=== PATIENT | male | born 1965 | race Caucasian/White ===

== ENCOUNTER 2020-03-02 15:45 | Inpatient (IN) | payer OTHER ==
[~2020-03-02] VITALS: Ht 185 cm; Wt 82.6 kg
[2020-03-02 15:47] VITALS: BP 137/95
[2020-03-02] MEDS ORDERED: TYLENOL325 MG PO (15:56)
[2020-03-02] MEDS ORDERED: IBU800 MG PO (15:57)
[2020-03-02 16:36] LABS: URINE BILIRUBIN NEGATIVE (Negative); URINE BLOOD NEGATIVE (Negative); URINE CLARITY CLEAR; URINE COLOR YELLOW; URINE GLUCOSE-RANDOM* NEGATIVE (Negative); URINE KETONES TRACE (Negative); URINE LEUKOCYTES-REFLEX NEGATIVE (Negative); URINE NITRITE-REFLEX NEGATIVE (Negative); URINE PROTEIN (DIPSTICK) NEGATIVE (Negative); URINE UROBILINOGEN 0.2 E.U./dl (0.2-1.0)
[2020-03-02 16:41] VITALS: BP 146/101
[2020-03-02 17:56] VITALS: BP 159/94
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
[2020-03-02 18:58] VITALS: BP 148/89
[2020-03-02 19:51] VITALS: BP 122/82
--- NOTE | 2020-03-03 01:20 | NUR ---
Assumed care on 03/02/20 @ 1900, in room, awake, sitting in bed at the foot of the bed. A&O x 3-4, Cooperated with assessment. HRRR, S1S2 noted, Lung sounds auscultated in all jorge, ABD N x 4 Q, fine hand tremor noted bilat. Denies N/V and SHULTZ. No anxiety or agitation observed. Wearing a cervical collar secondary to suicide attempt to jump off a bridge. Denies pain at this time. B/P 122/82 71 16 98.6 94%. Gait noted to be steady. On fall precautions. C/O headache pain and neck pain of 5/10 @ 00:15, 650 Tylenol provided prn. Upon follow up assessment noted to be in bed with eyes closed, respirations even and unlabored. Bed in low position with 2 upper rails up for ease of repositioning.
[2020-03-03 05:03] VITALS: BP 122/82
[2020-03-03 07:46] VITALS: BP 143/93
--- NOTE | 2020-03-03 08:31 | NUR ---
SW completed chart review, intake assessmnet and TP. Pt is homeless and lives behind [facility]. It is reported he has had several failed d/c plans, including a suicide attempy by jumping off a bridsge. It is reported that he is no longer suicidal as that only happens when he is drunk. SW will assist as much as possible to provide safety and follow up.
--- NOTE | 2020-03-03 10:54 | EKG ---
[facility] [place] [address] ELECTROCARDIOGRAM REPORT Name: PLACIDO WEIR Room #: [facility] Department ADM IN M.R.#: [id number] Admission: 03/02/20 Attend Phys: Pollo Charles DO Discharge: Date of : 61 Report #: [id number] THIS REPORT FOR: cc: ELVA - Roberta family physician/PCP ELVA - No family physician/PCP Malcolm Montana MD ~ THIS REPORT FOR: //name// [facility] ED Test Date: 2020-03-02 Test Time: 15:49:59 Pat Name: PLACIDO WEIR Department: Room: [facility] Gender: M Cpc Coder: MIRI : 1965 Requested By: Abiola Sow Order Number: [id number] MD: Malcolm Montana Measurements Intervals Baldwin Rate: 75 P: -2 NJ: 147 QRS: -48 QRSD: 91 T: 18 QT: 406 QTc: 454 Interpretive Statements Sinus rhythm Left anterior fascicular block No previous ECG available for comparison Electronically Signed On 03-03-2020 10:52:34 CDT by Malcolm Montana [email or web address] <ELECTRONICALLY SIGNED> By: Malcolm Montana MD 03/03/20 1052 1549 1549 Malcolm Montana MD /EPI
--- NOTE | 2020-03-03 11:39 | NUR ---
Up ambulating in unit without s/o distress. Watching TV with peers. States his lower back hurts 8/10. Requesting Ibuprofen 800 mg instead of Tylenol which he states only helps for 30 min. C collar in place. Alert and orientated X4, denies SI/HI. States he wants to go home. Breath sounds clear. Reg HR auscultated. Color pink with brisk capillary refill and palpable peripheral pulses. No edema noted. Active bowel sounds over soft, rounded abdomen. Independent with voiding. Regular, steady gait. Ibuprofen requested from Dr. Charles, given per order. Currently speaking with Dr. Charles and SW. Katja
[2020-03-03 19:50] VITALS: BP 133/86
[2020-03-03 19:55] VITALS: BP 133/86
[2020-03-03 20:03] VITALS: BP 133/86
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
--- NOTE | 2020-03-04 05:59 | NUR ---
Care transfered 03-03-201914 observed pt walking with steady gait to day room for HS snack. 1954 Pt AA)x3, pt combative and angry he stated he needed his pain medication now and refused panel machine setter, pt rated pain at a 10 on 0-10 scale, ot stated it was in hugh lower back and it was stabbing pain. Pt stated "He would just like to di: when asked about a plan pt stated "Anyway I can get it done.: Pt became belligerent and verbal abuses towards Rn. I reassured pt that I would be reviewing his available medication and would be back. Apprxoimately 2004 medication adminig. Pain reassesed and pt reported it was a 5 on 0-10 scale in lower back, pt denies any further pain at this time. Pt denies HI saravanan any further concerns at this time. RR even and non-labored. Zero acute distres noted thought out shift.
[2020-03-04 08:30] VITALS: BP 143/98
[2020-03-04] MEDS ORDERED: IBUPROFEN 800800 M1 PO (09:25)
[2020-03-04 10:27] VITALS: BP 143/98
--- NOTE | 2020-03-04 11:37 | NUR ---
03/03/[address] Charles met with pt to discuss his d/c plans. Pt would like to return to a shelterbut is convinced he is not allowed to. CYNDIE called [facility] and theya re accepting men in the detention daily. CYNDIE confirmed thiswith the pt , he is reluctanct but will go there.
--- NOTE | 2020-03-04 11:39 | NUR ---
Sw set up transporation with a taxi for d/c to [facility] at 11:30 am . Confimred this [facility] nursing and pt.
--- NOTE | 2020-03-04 11:50 | NUR ---
DISCHARGE INSTRUCTIONS REVIEWED WITH PATIENT INCLUDING MEDICATIONS DOSING AND TIMES,FOLLOW UP RECOMMENDATIONS AND WHEN TO SEEK EMERGENCY HELP. PT STATES UNDERSTANDING AND DENIES QUESTIONS/CONCERNS. DENIES SI/SH/HI ON DC. DENIES ACUTE PAIN. NO ACUTE ANXIETY OR PYSCHOSIS NOTED OT REPORTED. STATES HE IS "HAPPY TO BE GETTING OUT OF HERE" AND IS SMILING AND CONVERSING WITH PEERS PRIOR TO DC. DC FROM UNIT VIA ACCOMPNIED BY STAFF AWAITING TAXI-TO GO TO [facility]. PERSONAL BELONGINGS SENT WITH PT AT TIME OF DC
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
== END 2020-03-04 11:30 | disposition home or self-care (01) | DRG 881 ==
LOC: ER 15:45 → EROBS 17:07 → SBH 17:07
PROVIDERS: Physician Assistant; ADMIT Psychiatry & Neurology Psychiatry
DX: F32.9 Major depressive disorder, single episode, unspecified (principal); R45.851 Suicidal ideations; F19.10 Other psychoactive substance abuse, uncomplicated; F68.8 Other specified disorders of adult personality and behavior; Z60.2 Problems related to living alone; F10.129 Alcohol abuse with intoxication, unspecified; B19.20 Unspecified viral hepatitis C without hepatic coma; Z87.81 Personal history of (healed) traumatic fracture; Z59.0 Homelessness; Z79.899 Other long term (current) drug therapy
CPT/HCPCS: 10880